=== PATIENT | male | born 1940 | race Caucasian/White ===

== ENCOUNTER → 2025-03-14 06:48 | Outpatient (REF) | payer OTHER, SELFPAY | LOC: RAD 06:48 | PROVIDERS: ATTENDING PHYSICIAN Podiatrist Foot & Ankle Surgery; FAMILY PHYSICIAN Family Medicine | DX: I70.91 Generalized atherosclerosis (principal) | CPT/HCPCS: 93922; 93925 ==

== ENCOUNTER → 2025-07-15 08:50 | Outpatient (REF) | payer OTHER, SELFPAY | LOC: RST 08:50 | PROVIDERS: ATTENDING PHYSICIAN Internal Medicine Critical Care Medicine; FAMILY PHYSICIAN Family Medicine | DX: J84.9 Interstitial pulmonary disease, unspecified (principal) | CPT/HCPCS: 74230; 92611 ==

== ENCOUNTER 2025-09-08 06:32 | Day surgery (SDC) | payer OTHER, SELFPAY ==
[2025-09-08 15:00] VITALS: BMI 28.7
[2025-09-08 15:15] VITALS: BP 126/79
[2025-09-08 15:30] VITALS: BMI 28.7
[2025-09-08 17:18] VITALS: BP 126/79; BP 126/99
[2025-09-08 17:38] VITALS: BP 114/81
[2025-09-08 17:45] VITALS: BP 117/77
[2025-09-08 18:05] VITALS: BP 124/69
[2025-09-08 18:09] LABS: Brochalveolar Lavage Volume 11 ml
[2025-09-08 18:10] LABS: Brochalveolar Lavage Character Clear (Clear); Brochalveolar Lavage Color Colorless; Brochalveolar Lavage WBC 35000 cells/ml
[2025-09-09 08:16] LABS: BAL Lining Cells 19 %
== END 2025-09-08 18:21 | disposition home or self-care (01) ==
LOC: SDS 06:32
PROVIDERS: ATTENDING PHYSICIAN Internal Medicine
DX: J84.10 Pulmonary fibrosis, unspecified (principal); R06.00 Dyspnea, unspecified; J98.8 Other specified respiratory disorders
CPT/HCPCS: 31624; 71045; 87070; 87102; 87116; 87205; 88112; 88305; 89051

== ENCOUNTER → 2025-09-19 11:33 | Outpatient (REF) | payer OTHER, SELFPAY | LOC: DHSLP 11:33 | PROVIDERS: ATTENDING PHYSICIAN Internal Medicine Critical Care Medicine | DX: G47.33 Obstructive sleep apnea (adult) (pediatric) (principal) | CPT/HCPCS: 95800 ==

== ENCOUNTER 2025-10-14 19:13 | Inpatient (IN) | payer OTHER, SELFPAY ==
[2025-10-14] VITALS (8 sets, daily range): BP systolic 104–160; BP diastolic 46–130; BMI 28.5
[2025-10-14 14:12] LABS: Hematocrit 40.0 % (39.0-52.0); Hemoglobin 14.1 g/dL (13.0-18.0); Mean Corp Hgb Conc. 35.3 g/dL (33.0-37.0); Mean Corpuscular Volume 93.7 fL (80.0-94.0); Nucleated Red Blood Cells % 0 % (-); Platelet Count 179 10^3/uL (130-400); Red Cell Dist. Width 11.9 % (11.5-14.5)
[2025-10-14 14:29] LABS: ALT (SGPT) 71 U/L (0-50); AST (SGOT) 100 U/L (17-59); Albumin 3.7 g/dl (3.5-5.0); Alkaline Phosphatase 136 U/L (38-126); Blood Urea Nitrogen 22 mg/dl (9-20); Calcium 9.1 mg/dl (8.4-10.2); Carbon Dioxide 28 mmol/L (22-30); Chloride 96 mmol/L (98-107); Glucose 120 mg/dl (70-99); Potassium 4.2 mmol/L (3.5-5.1); Sodium 129 mmol/L (135-145); Total Protein 6.7 g/dl (6.3-8.2); eGFR > 60.00
[2025-10-14] MEDS: NSS 500 IV (15:26)
[2025-10-14 15:42] LABS: Urine Character Clear (Clear)
[2025-10-14 15:54] LABS: Urine Squamous Cell 0-2 /LPF (Few)
[2025-10-14 15:55] LABS: Urine White Cell >100 /HPF (0-5)
--- NOTE | 2025-10-14 15:59 | ED.GENMED ---
History of Present Illness
General
Chief Complaint: Fall
Source: patient and family
Exam Limitations: none
Time Seen by Provider: 10/14/25 14:38
Nursing documentation reviewed up to this point in time: agreed with
History of Present Illness
History of Present Illness:
Patient presents to ED secondary to 5-day history of 'not feeling well', along with intermittent episodes of involuntary tremor, which has caused patient to fall. Denies headache. Denies head injury from the fall. Denies blurred vision. Denies
loss of sensation or focal weakness. Denies difficulty with speech. In his room, patient reports lack of appetite over the past 4 days. Denies vomiting or diarrhea. Denies abdominal pain. Denies coughing. Denies chest pain or shortness of
breath. Denies recent change in medications or diet. Patient does report chronic shortness of breath from recently diagnosed interstitial pulmonary fibrosis along with congestive heart failure, for which he takes Lasix.
Review of Systems
Review of Systems
Allergies reviewed?: Yes
All Other Systems: ROS reviewed and negative except as documented in HPI and ROS
Constitutional: Reports no symptoms; Denies fever or chills
Respiratory: Reports no symptoms; Denies cough
Cardiac: Reports no symptoms; Denies chest pain, palpitations or syncope
ABD/GI: Reports no symptoms; Denies vomiting or diarrhea
: Reports no symptoms
Musculoskeletal: Reports no symptoms
Skin: Reports no symptoms
Neurological: Reports weakness and other (Involuntary tremor)
Phy Exam
Physical Exam
Physical Exam:
Physical Exam
General: mild distress, not acutely ill. afebrile
Head: nc/at. eomi
Neck: supple. no meningeal signs. normal posterior pharynx
Heart: s1/s2 regular rate and rhythm
Lungs: no acute respiratory distress. diminished breath sounds bilaterally
Abdomen: normal bowel sounds. not tender.
Neuro: alert and oriented x 3. no focal sensory/motor deficit. normal speech. intermittent b/l UE/LE tremor noted
Skin: no rash
Psychiatric: well kept. interactive and cooperative
Extremities: no edema. no calf tenderness.
Course
Orders/Labs/Results
Orders:
Orders
10/14/25 Breakfast
Cholesterol Lowering
Cholesterol Lowering: Sodium, 2 Gram
10/14/25 13:56
Complete Blood Count/With Diff Urgent
Comprehensive Metabolic Panel Urgent
Magnesium Urgent
Comment: ADD ON
TSH Reflex To Free T4 Urgent
Comment: ADD ON
10/14/25 15:11
Add On- LAB Urgent
Tests Added?: TSH to reflex free T4, magnesium, proBNP
CT Head W/o Iv Contrast Urgent
Comment:
Reason For Exam: weakness with involuntary tremor
10/14/25 15:12
0.9% Sodium Chloride 500 ml [Nss] 500 ml IV BOLUS
10/14/25 15:13
CR Obstruct Series W/pa Chest Urgent
Comment:
Reason For Exam: constipation w sob
10/14/25 15:36
Urinalysis Reflex To Culture Urgent
Date Specimen was Collected: 10/14/25
Time Specimen was Collected: 15:35
Urine Microscopic Reflex Cult Urgent
Urine Culture Urgent
CARLOS Source: U
Specimen Description:
Date Specimen was Collected: 10/14/25
Time Specimen was Collected: 15:35
10/14/25 17:49
CefTRIAXone [Rocephin] 1,000 mg IV NOW STA
10/14/25 17:50
diazePAM [Valium Injection] 2 mg IV NOW STA
10/14/25 18:21
Admit/Transfer Patient As Directed
Co-Sign Provider:
Level of Care: Inpatient admission
Assign to:: Medical/Surgical
Physician / Group: mariel,jay
Diagnosis: UTI
Reason for Hospitalization: UTI
Expected length of stay greater than two midnights?: Yes
ELOS- Estimated Length of Stay in days: 3
I certify the patient meets the requirements for IP care: Yes
10/14/25 18:22
Code Status As Directed
Resuscitation Status: Do not resuscitate
Reached after discussion with pt or family/Healthcare POA: Yes
DNR Bracelet Application ONCE
PRN Pain Medication Management As Directed
May give lesser potent ordered pain med per pt: Yes
preference::
Protocol:: Medication orders for pain may be administered in a
manner that supports deferring to patient preference
when the pt is:
- Requesting an ordered lesser potent pain medication.
Least to most potent pain medications are defined
as: acetaminophen < NSAID < tramadol < opioids
(morphine, oxycodone, hydromorphone).
- Requesting a lesser dose of the same medication IF
ORDERED.
- Requesting a less intrusive route of administration
if both routes are prescribed by the provider (PO <
IV).
10/14/25 18:34
Ondansetron Injectable [Zofran] 4 mg .ROUTE .STK-MED ONE
10/14/25 18:35
Ondansetron Injectable [Zofran] 4 mg IV NOW STA
10/14/25 18:39
Acetaminophen [Tylenol] 650 mg PO NOW STA
10/14/25 18:44
Pro-BNP [NT-proBNP] Stat
10/14/25 18:59
Blood Culture Q30M
CARLOS Source: Blood/Venous
Specimen Description:
Blood Culture Q30M
CARLOS Source: Blood/Venous
Specimen Description:
10/14/25 20:02
0.9% Sodium Chloride 1000 ml [Nss] 1,000 ml IV 60 mls/hr
Acetaminophen [Tylenol] 650 mg PO Q4HPRN PRN
Bisacodyl [Dulcolax] 10 mg RECTAL [id number] PRN
Budesonide [Pulmicort] 0.5 mg INH R BID
CefTRIAXone [Rocephin] 1,000 mg IV Q24H
Docusate Sodium [Colace] 100 mg PO BID
Docusate W/Senna [Senokot-S] 1 tablet PO BIDPRN PRN
Polyethylene Glycol Powder [Miralax] 17 grams PO DAILYPRN PRN
Sennosides [Senokot] 8.6 mg PO BID
10/14/25 20:02
Activity As Directed
Activity Level: As Tolerated
Intake/ Output As Directed
Frequency: Per unit guidelines
Vital Signs As Directed
Frequency: Per unit guidelines
Weight As Directed
Frequency: Daily
Ot Eval And Treat Routine
Pt Eval And Treat Routine
Activity Level: As Tolerated
DX Deep Vein Thrombosis Video Routine
10/14/25 22:00
Montelukast Sodium [Singulair] 10 mg PO HS
Pregabalin [Lyrica] 75 mg PO HS
10/15/25 06:00
Complete Blood Count/No Diff IN AM
Comprehensive Metabolic Panel IN AM
10/15/25 08:00
Polyethylene Glycol Powder [Miralax] 17 grams PO DAILY
10/15/25 18:00
Enoxaparin Sodium [Lovenox] 40 mg SC QPM
10/16/25 06:00
Complete Blood Count/No Diff IN AM
Comprehensive Metabolic Panel IN AM
10/17/25 06:00
Complete Blood Count/No Diff IN AM
Comprehensive Metabolic Panel IN AM
10/18/25 06:00
Complete Blood Count/No Diff IN AM
Comprehensive Metabolic Panel IN AM
Abnormal Lab Results
10/14/25 10/14/25
13:56 15:36
WBC 12.9 H 10^3/uL
(4.8-10.8)
RBC 4.27 L 10^6/uL
(4.70-6.10)
MCH 33.0 H pg
(27.0-31.0)
MPV 10.5 H fL
(7.4-10.4)
Abs Immat Gran (auto) 0.1 H 10^3/uL
(0-0.05)
Absolute Neuts (auto) 10.3 H 10^3/uL
(1.4-6.5)
Absolute Lymphs (auto) 1.0 L 10^3/uL
(1.2-3.4)
Absolute Monos (auto) 1.5 H 10^3/uL
(0.1-0.6)
Neutrophils % 79.5 H %
(42.2-75.2)
Lymphocytes % 7.7 L %
(20.5-51.1)
Monocytes % 11.7 H %
(1.7-9.3)
Sodium 129 L mmol/L
(135-145)
Chloride 96 L mmol/L
(98-107)
BUN 22 H mg/dl
(9-20)
Glucose 120 H mg/dl
(70-99)
Total Bilirubin 1.7 H mg/dl
(0.2-1.3)
AST 100 H U/L
(17-59)
ALT 71 H U/L
(0-50)
Alkaline Phosphatase 136 H U/L
(38-126)
Ur Occult Blood Reflex 3+ A
(Negative)
Urine Nitrite (Reflex) Positive A
(Negative)
Leukocyte Esterase Rfl 3+ A
(Negative)
Urine RBC 3-6 A /HPF
(0-2)
Urine WBC (Reflex) >100 A /HPF
(0-5)
Urine Bacteria (Reflex) Many A
(Negative)
Urine Albumin (Reflex) 3+ A
(Neg - Trace)
10/14/25 13:56
10/14/25 13:56
Vital Signs
Initial and Last Documented VS:
Initial Vital Signs
Pulse Resp Pulse Ox
90 15 97
10/14/25 13:58 10/14/25 13:58 10/14/25 13:58
Last Documented Vital Signs
Temp Pulse Resp BP Pulse Ox
100.1 F 91 19 126/55 94
10/14/25 19:46 10/14/25 19:30 10/14/25 19:00 10/14/25 19:00 10/14/25 19:00
MDM/Problems Addressed
MDM/Problems Addressed:
History, exam, and blood work, along with urinalysis, consistent with patient's overall worsening generalized weakness, secondary to dehydration from UTI. Patient will be admitted for further evaluation treatment, including IV hydration and IV
antibiotics. In addition, patient with remittent episodes of intermittent involuntary tremor, which may be multifactorial. Patient will be given Ativan for symptomatic control in the ED. Patient may require neurology consultation as inpatient, if
symptoms persist.
*Pulse Oximetry
SaO2: 95
Patient hypoxic: no
*Critical Care Note
Total Time (30-74mins, 75-104mins- exclusive of procedures): Not Applicable
ED Attending Note
-
Portions of this chart may have been created with voice recognition software.� Occasional wrong word or��sound alike� substitutions may have occurred due to the inherent limitations of voice recognition software.
Discharge Plan
Departure
Patient Disposition: Admit
Date of Disposition: 10/14/25
Time of Disposition: 17:52
Presentation/result/management discussed w/ accepting MD/DO: Hospitalist
Discharge Problem:
Acute UTI, Acute hyponatremia, INVOLUNTARY TREMORS
Interventions
Interventions:
*Risk Screen - Suicide Last Done: 10/14/25 13:29
*General Assessment Last Done: 10/14/25 18:21
*Neglect/Abuse Screening Last Done: 10/14/25 14:38
*ED COVID-19 Vaccine History Last Done: 10/14/25 13:34
*ED Influenza Vaccine History Last Done: 10/14/25 13:34
[facility] Fall Risk Assessment Tool Last Done: 10/14/25 13:28
*Nursing Disposition Last Done: 10/14/25 19:50
ED-Musculoskeletal Assessment Last Done: 10/14/25 14:35
ED- Neurological Assessment Last Done: 10/14/25 14:35
ED-Skin Assessment Last Done: 10/14/25 14:35
Discharge Date and Time
Discharge Date/Time: 10/14/25 19:58
[2025-10-14 16:27] LABS: Magnesium 2.0 mg/dl (1.6-2.3)
[2025-10-14] MEDS: VALIUM INJECTION 2 MG IV (17:59)
[2025-10-14] MEDS: ROCEPHIN 1000 MG IV (17:59)
--- NOTE | 2025-10-14 18:01 | HPS.HSE ---
Family Physician
-
Family Physician: Kyler Baldwin
Chief Complaint
-
shaking chills, urinary burning, constipation
History of Present Illness
85-year-old with past medical history for Restrictive lung disease, interstitial lung disease,, shingles, hyperlipidemia, prostate cancer,HLD, CHF presented to us with generalized weakness, shaking chills, urinary burning, constipation for past 4-5
days. due to the shaking, he had multiple falls. Denies headache. Denies head injury from the fall. Denies blurred vision. Denies loss of sensation or focal weakness. Denies difficulty with speech, patient reports lack of appetite over the past
4 days. Denies vomiting or diarrhea or abdominal pain.denied cough, congestion. he has chronic sob.he was complaining of constipation for which he took miralax and he had small two bowel movements.
Concern for UTI. Patient started on ceftriaxone. Normal saline x 1 bag in the ER. Admitted for further management
Medical History
Past Medical History
Past Medical History: Reports Other
Additional Past Medical History:
CHF, hypertension, hyperlipidemia, interstitial lung disease, prostate cancer
Past Surgical History: Reports Other
Additional Past Surgical History:
Rotator cuff repair, prostatectomy
Social History
Tobacco: Former Smoker
Alcohol: None
Drug: None
Personal: Single
Living: Alone
Family History
Family History: Not pertinent
Allergies / Home Medications
Allergies reflects when Allergies were last updated in [employer].
Home Medications with original date entered in [employer]
Allergy/Medication List:
Allergies
Allergy/AdvReac Type Severity Reaction Status Date / Time
No Known Allergies Allergy Verified 10/14/25 13:29
Home Medications
atorvastatin 20 mg tablet 20 mg PO HS High Cholesterol 09/04/25
budesonide 0.5 mg/2 mL suspension for nebulization 0.5 mg inhalation R BID Lung/Breathing Issues 09/04/25
montelukast 10 mg tablet 10 mg PO HS Allergies 09/04/25
pregabalin 75 mg capsule 75 mg PO HS Anti-Inflammatory 09/04/25
spironolactone 25 mg tablet 25 mg PO DAILY Fluid Retention/Swelling 09/04/25
torsemide 10 mg tablet 10 mg PO DAILY Fluid Retention/Swelling 09/04/25
ascorbic acid (vitamin C) 500 mg tablet (Vitamin C) 500 mg PO DAILY 10/14/25
polyethylene glycol 3350 17 gram oral powder packet (Miralax) 17 g PO DAILYPRN PRN constipation 10/14/25
Review of Systems
-
Constitutional: Reports No Symptoms, Fatigue and Chills
EENT: Reports No Symptoms
Respiratory: Reports Trouble Breathing
Cardiac: Reports No Symptoms
Abdomen/GI: Reports No Symptoms
: Reports Dysuria
Musculoskeletal: Reports No Symptoms
Skin: Reports No Symptoms
Neurological: Reports Weakness
Endocrine: Reports No Symptoms
Hematologic/Lymphatic: Reports No Symptoms
Psych: Reports No Symptoms
Physical Exam
Vital Signs
Vital Signs
Temp Pulse Resp BP Pulse Ox
98.0 F 90 15 160/124 97
10/14/25 14:35 10/14/25 17:45 10/14/25 17:45 10/14/25 17:18 10/14/25 17:45
Physical Exam
General: Well Developed, Well Nourished and No Apparent Distress
HEENT: NormoCephalic, Moist mucous membranes and Atraumatic
Respiratory: Clear
Cardiac: S1/S2 and Regular Rhythm; No Murmur or Rub
GI: Soft, Non Tender, Non Distended and Normal Bowel Sounds; No Organomegaly
Rectal: Deferred by Provider
Musculoskeletal: No Clubbing, No Cyanosis and No Edema
Skin: No Rash
Neuro: AO x 3 and Nonfocal/grossly intact
Psych: Calm
Laboratory Results
-
10/14/25 13:56
10/14/25 13:56
Laboratory Results
Total Bilirubin 1.7 mg/dl (0.2-1.3) H 10/14/25 13:56
AST 100 U/L (17-59) H 10/14/25 13:56
ALT 71 U/L (0-50) H 10/14/25 13:56
Alkaline Phosphatase 136 U/L (38-126) H 10/14/25 13:56
Data Reviewed
-
CT Scan: Report Reviewed by me
Lab Data: Labs Reviewed by me
Impression/Plan
-
# Urinary tract infection
- IV ceftriaxone continue
- Tylenol as needed for fever or pain
- Urine culture pending
- WBCs 12.9
- Chest abdomen x-ray with impression of Increased interstitial markings within the mid to lower lungs, compatible with interstitial fibrosis when comparing to previous exams.No evidence of consolidation to suggest pneumonia. No evidence for
pulmonary edema pattern.No radiographic evidence for bowel obstruction or free intraperitoneal air.
- CT head negative
# Hyponatremia secondary to dehydration
- Fluids continued
- BMP in the morning
- Sodium 129
- Hold torsemide and spironolactone
#constipation
-colace and senna
-miralax added
# History of CHF
- Noted acute exacerbation
- Strict LAWRENCE, daily weight
# Transaminitis
- T. bili 1.7, AST 100, ALT 71, ALK 136
# History for interstitial lung disease
- Singular continued
# Hyperlipidemia
- Hold statin due to transaminitis
# DVT prophylaxis
- Lovenox subcu
# CODE STATUS
- DNR
--- NOTE | 2025-10-14 18:21 | W.PN.UPDATE ---
Update Note
Progress Note Update
This note serves as an addendum to the H&P by construction inspector Jannetba Arnoldo
HPI�
85M
PHX: CHF NOS , HLD, HTN seen at ER
- intermittent episodes of involuntary tremor, which has caused patient to fall.
- Denies head injury from the fall.
- Denies headache.
- Denies blurred vision.
- Denies loss of sensation or focal weakness.
- reports lack of appetite over the past 4 days. Denies vomiting or diarrhea. Denies abdominal pain.
- report chronic shortness of breath from recently diagnosed interstitial pulmonary fibrosis along with congestive heart failure, for which he takes Lasix.
PHX: see above
Relevant VS
Temp Pulse Resp BP Pulse Ox
98.0 F 90 18 123/50 98
10/14/25 14:35 10/14/25 18:15 10/14/25 18:15 10/14/25 18:00 10/14/25 18:15
PE
Gen: NAD
HEENT: symmetric AE
Neck: supple
Lungs: CTA
Cor: RRR S1S2
Abdomen:�soft NT NG
CEMENT KILN OPERATOR: AAO3 NFND
MS: no edema
Psych: interactive and cooperative
Relevant Data
10/14/25
13:56
WBC 12.9 H
Hgb 14.1
Plt Count 179
Sodium 129 L
Chloride 96 L
BUN 22 H
Creatinine 1.1
eGFR > 60.00
Glucose 120 H
Total Bilirubin 1.7 H
AST 100 H
ALT 71 H
Alkaline Phosphatase 136 H
10/14/25
15:36
Urine Nitrite (Reflex) Positive A
Leukocyte Esterase Rfl 3+ A
Urine RBC 3-6 A
Urine WBC (Reflex) >100 A
Urine Bacteria (Reflex) Many A
CR Obstruct Series W/pa Chest for Constipation and shortness of breath
- Increased interstitial markings within the mid to lower lungs, compatible with interstitial fibrosis when comparing to previous exams.
- No evidence of consolidation to suggest pneumonia. No evidence for pulmonary edema pattern.
- No radiographic evidence for bowel obstruction or free intraperitoneal air.
HCT
No acute intracranial abnormality noted.
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
No prior hospitalist admission:
ASSESSMENT & PLAN
Complicated UTI in Male
Associated rigors
- r/o Bacteremia
- UCx
- BCX but sent after IV ABx
- Empiric IV CFTX
- IVF
- Tylenol PRN
Hypovolemic hyponatremia ( Na 129 )
- associated with dehydration from poor PO and UTI
- s/p IV NS 1L at ER - to cont IV NS 1 L more @ 60/H
- Trend Na
- Hold torsemide and spironolactone
Transaminitis likely shock liver from dehydration , UTI
- Trend LFTs
- Hold statin due to transaminitis
HX constipation
- Colace and senna and Miralax
HX CHF
- clinically not in acute HF
HX interstitial lung disease
- WAITER/WAITRESS HEAD Singular continued
Hyperlipidemia
- Hold statin due to transaminitis
DVT Px: LMWH
DNR
IP MS
[2025-10-14] MEDS: ZOFRAN 4 MG IV (18:36)
[2025-10-14] MEDS: TYLENOL 650 MG PO (18:45)
[2025-10-14] MEDS: PULMICORT 0.5 MG INH (21:01)
[2025-10-14] MEDS: LYRICA 75 MG PO (21:25)
[2025-10-14] MEDS: COLACE 100 MG PO (21:25)
[2025-10-14] MEDS: SENOKOT 8.6 MG PO (21:25)
[2025-10-14] MEDS: SINGULAIR 10 MG PO (21:25)
[2025-10-14] MEDS: NSS 1000 IV (21:41)
--- NOTE | 2025-10-15 06:11 | PTCARENOTE ---
Pt c/o rigors. T 98.5. Discussed with PEER EDUCATOR hyperion essbase developer. No new orders placed. No s/s of distress assessed. Will continue to monitor.
[2025-10-15 06:13] VITALS: BMI 28.5
[2025-10-15 07:40] LABS: Hematocrit 37.0 % (39.0-52.0); Hemoglobin 13.2 g/dL (13.0-18.0); Mean Corp Hgb Conc. 35.7 g/dL (33.0-37.0); Mean Corpuscular Volume 94.9 fL (80.0-94.0); Platelet Count 171 10^3/uL (130-400); Red Cell Dist. Width 11.9 % (11.5-14.5)
[2025-10-15 07:45] VITALS: BP 123/92
[2025-10-15 08:06] LABS: ALT (SGPT) 69 U/L (0-50); AST (SGOT) 81 U/L (17-59); Albumin 3.3 g/dl (3.5-5.0); Alkaline Phosphatase 121 U/L (38-126); Blood Urea Nitrogen 20 mg/dl (9-20); Calcium 8.3 mg/dl (8.4-10.2); Carbon Dioxide 27 mmol/L (22-30); Chloride 102 mmol/L (98-107); Estimated Creatinine Clearance 61 ml/min; Glucose 109 mg/dl (70-99); Potassium 4.0 mmol/L (3.5-5.1); Sodium 137 mmol/L (135-145); Total Protein 6.2 g/dl (6.3-8.2); eGFR > 60.00
[2025-10-15] MEDS: PULMICORT 0.5 MG INH ×2 (08:16→20:56)
[2025-10-15] MEDS: SENOKOT 8.6 MG PO ×2 (08:40→19:45)
[2025-10-15] MEDS: MIRALAX 17 GRAMS PO (08:40)
[2025-10-15] MEDS: COLACE 100 MG PO ×2 (08:40→19:45)
--- NOTE | 2025-10-15 09:34 | W.PN.HOSP.TC ---
Today's Communication/Plan
-
see plan
Assessment / Plan
Assessment / Plan
Gen: NAD, AAOx3.
Eyes: EOMI, PERRLA, no scleral icterus.
Neck: supple.
CV: RRR, +S1/S2, no m/r/g.
Resp: CTAB, no rales, wheezes, or rhonchi.
Abd: +BS, soft, NT, ND
Skin: No rashes.
Neuro: CN 2-12 intact, non-focal, mod tremor.
Psych: Normal mood and affect.
CT brain: No acute intracranial abnormality noted. 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
OBST serids: Increased interstitial markings within the mid to lower lungs, compatible with interstitial fibrosis when comparing to previous exams. No evidence of consolidation to suggest pneumonia. No evidence for pulmonary edema pattern. No
radiographic evidence for bowel obstruction or free intraperitoneal air.
Acute UTI:
-cont Rocephin
-s/p IVFs
-trend leukocytosis
-follow BCxs/UCx
Other problems:
Chronic CHF (type unknown): Torsemide/Aldactone on hold based on current BPs with acute infection. Check echo.
Hyponatremia, resolved with IVFs. Torsemide/Aldactone on hold
Constipation: cont bowel regimen
Elevated LFTs due to shock liver, improving
ILD, not in acute exac
HLD: holding statin with transaminitis
Pt's daughter updated at bedside.
DNR/Lovenox
Anticipated Discharge: 24 - 48 hours
Subjective/Interval History
-
Date of Service: October 15, 2025
Denies CP/SOB/abd pain. c/o tremor.
Objective Data
-
Labs:
Laboratory Results
10/15/25
06:50
WBC 12.3 H
Hgb 13.2
Hct 37.0 L
Plt Count 171
Sodium 137 D
Potassium 4.0
Chloride 102
Carbon Dioxide 27
BUN 20
Creatinine 0.9
Glucose 109 H
Calcium 8.3 L
Total Bilirubin 1.3
AST 81 H
ALT 69 H
Alkaline Phosphatase 121
Vital Signs:
Vital Signs
Temp Pulse Resp BP Pulse Ox
100.2 F 75 18 123/92 95
10/15/25 07:45 10/15/25 08:19 10/15/25 08:19 10/15/25 07:45 10/15/25 08:19
I&O
10/14/25 10/15/25 10/16/25
06:59 06:59 06:59
Output Total 850 / 850
Balance -850 / -850
[2025-10-15] MEDS: TYLENOL 650 MG PO ×2 (11:11→22:31)
[2025-10-15 11:25] VITALS: BP 93/41; PULSE 77
[2025-10-15 11:31] VITALS: BP 93/41; PULSE 71; O2SAT 96
--- NOTE | 2025-10-15 11:44 | CM ---
Patient seen bedside with daughter.
IA completed.
Patient independent prior to admission.
patient lives alone 1 story home with ramp to enter.
patient has cane and currently using RW in the hospital.
Patient denies insecurities.
Daughter will arrange transportation home.
IMM completed.
PCP: Dr Baldwin
pharmacy: [facility]
Plan: home, watch for VN needs, PT/OT evals (P)
[2025-10-15 15:30] VITALS: BP 126/54
[2025-10-15] MEDS: LOVENOX 40 MG SC (17:07)
[2025-10-15] MEDS: ROCEPHIN 1000 MG IV (17:07)
[2025-10-15] MEDS: STERILE WATER FOR INJECTION 10 ML IV (17:07)
[2025-10-15] MEDS: SINGULAIR 10 MG PO (19:45)
[2025-10-15] MEDS: LYRICA 75 MG PO (19:45)
[2025-10-15 23:15] VITALS: BP 139/57
[2025-10-16 06:19] VITALS: BMI 28.9
[2025-10-16 06:40] LABS: Hematocrit 36.0 % (39.0-52.0); Hemoglobin 12.6 g/dL (13.0-18.0); Mean Corp Hgb Conc. 35.0 g/dL (33.0-37.0); Mean Corpuscular Volume 95.0 fL (80.0-94.0); Platelet Count 180 10^3/uL (130-400); Red Cell Dist. Width 12.2 % (11.5-14.5)
[2025-10-16 06:58] LABS: ALT (SGPT) 94 U/L (0-50); AST (SGOT) 100 U/L (17-59); Albumin 3.1 g/dl (3.5-5.0); Alkaline Phosphatase 135 U/L (38-126); Blood Urea Nitrogen 21 mg/dl (9-20); Calcium 8.6 mg/dl (8.4-10.2); Carbon Dioxide 27 mmol/L (22-30); Chloride 104 mmol/L (98-107); Estimated Creatinine Clearance 61 ml/min; Glucose 101 mg/dl (70-99); Potassium 4.1 mmol/L (3.5-5.1); Sodium 135 mmol/L (135-145); Total Protein 5.9 g/dl (6.3-8.2); eGFR > 60.00
[2025-10-16] MEDS: PULMICORT 0.5 MG INH ×2 (07:23→19:29)
[2025-10-16 07:54] VITALS: BP 135/54
--- NOTE | 2025-10-16 08:33 | W.PN.HOSP.TC ---
Today's Communication/Plan
-
see plan
Assessment / Plan
Assessment / Plan
Gen: NAD, AAOx3.
Eyes: EOMI, PERRLA, no scleral icterus.
Neck: supple.
CV: remains RRR, +S1/S2, no m/r/g.
Resp: CTAB anteriorly, no rales, wheezes, or rhonchi.
Abd: +BS, soft, NT, ND
Skin: No rashes. No LE edema.
Neuro: CN 2-12 intact, non-focal, mod tremor.
Psych: Normal mood and affect.
10/14/25 15:36 Urine Urine Culture - Final
Klebsiella pneumoniae
10/14/25 18:59 Blood/Venous Blood Culture - Preliminary
No Growth in 24 hours- Final report to follow
10/14/25 18:59 Blood/Venous Blood Culture - Preliminary
No Growth in 24 hours- Final report to follow
Echo:
1. Normal biventricular size and systolic function, with no regional wall motion abnormalities. Estimated LVEF 55%.
2. Paradoxical septal motion consistent with conduction abnormality.
3. Mild aortic regurgitation. Aortic sclerosis without stenosis.
4. Mild/moderate mitral valve regurgitation.
5. No prior study for comparison.
CT brain: No acute intracranial abnormality noted. 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
OBST series: Increased interstitial markings within the mid to lower lungs, compatible with interstitial fibrosis when comparing to previous exams. No evidence of consolidation to suggest pneumonia. No evidence for pulmonary edema pattern. No
radiographic evidence for bowel obstruction or free intraperitoneal air.
Acute UTI:
-UCx with Klebsiella sensitive to cephalosporins, BCxs NGTD
-cont Rocephin
-s/p IVFs
-leukocytosis improving
-trend fever curve
h/o LE edema:
-echo above
-note, chronic HFpEF has been ruled out
-as per discussion with pt's daughter the pt see's special agent [employer] Dr. Goddard who has stated the pt does not have CHF. He was on Torsemide/Aldactone for LE edema. Will not restart diuretics at this time.
Other problems:
Hyponatremia, resolved with IVFs
Constipation: Mg citrate x 1 today
Elevated LFTs due to shock liver, improving
ILD, not in acute exac
HLD: holding statin with transaminitis
Pt's daughter updated at bedside at length.
DNR/Lovenox
Total time spent on today's encounter was 50 minutes which included time spent in counseling the patient/family regarding diagnosis and treatment plan as listed above, goals of care, and symptom management. Case was discussed with nursing staff,
specialists, and care coordinators/case management. All labs and imaging personally reviewed by me. Remainder the time spent in detailed review of previous records, lab data, imaging, and other medical provider documentation.
Anticipated Discharge: 24 - 48 hours
Subjective/Interval History
-
Date of Service: October 16, 2025
Objective Data
-
Labs:
Laboratory Results
10/16/25
05:56
WBC 10.9 H
Hgb 12.6 L
Hct 36.0 L
Plt Count 180
Sodium 135
Potassium 4.1
Chloride 104
Carbon Dioxide 27
BUN 21 H
Creatinine 0.9
Glucose 101 H
Calcium 8.6
Total Bilirubin 0.7
AST 100 H
ALT 94 H
Alkaline Phosphatase 135 H
Vital Signs:
Vital Signs
Temp Pulse Resp BP Pulse Ox
98.2 F 65 12 135/54 99
10/16/25 07:54 10/16/25 07:54 10/16/25 07:54 10/16/25 07:54 10/16/25 07:54
I&O
10/15/25 10/16/25 10/17/25
06:59 06:59 06:59
Intake Total 1380 / 1380
Output Total 850 / 850 1225 / 1225
Balance -850 / -850 155 / 155
[2025-10-16] MEDS: SENOKOT 8.6 MG PO (09:22)
[2025-10-16] MEDS: MIRALAX 17 GRAMS PO (09:22)
[2025-10-16] MEDS: COLACE 100 MG PO (09:24)
--- NOTE | 2025-10-16 11:55 | CM ---
CM met with patient and his daughter at bedside. Discussed PT/OT recommendations for SNF. Provided patient with list of are facilities. Patient and daughter requesting referrals to [facility]. [facility], and [facility] in
[place]. Referrals were placed in [facility].
Plan: SNF, will need insurance auth
[2025-10-16] MEDS: CITROMA 300 ML PO (11:57)
[2025-10-16 12:57] VITALS: BP 136/63
[2025-10-16 15:30] VITALS: BP 155/76
[2025-10-16] MEDS: STERILE WATER FOR INJECTION 10 ML IV (17:33)
[2025-10-16] MEDS: ROCEPHIN 1000 MG IV (17:42)
[2025-10-16] MEDS: LOVENOX 40 MG SC (17:43)
[2025-10-16] MEDS: SENOKOT PO (20:01)
[2025-10-16] MEDS: LYRICA 75 MG PO (20:01)
[2025-10-16] MEDS: SINGULAIR 10 MG PO (20:01)
[2025-10-16] MEDS: COLACE PO (20:01)
[2025-10-16 22:56] VITALS: BP 143/70
[2025-10-17 05:15] VITALS: BMI 28.3
[2025-10-17 07:00] VITALS: BP 139/57
[2025-10-17 08:03] LABS: Hematocrit 36.5 % (39.0-52.0); Hemoglobin 12.8 g/dL (13.0-18.0); Mean Corp Hgb Conc. 35.1 g/dL (33.0-37.0); Mean Corpuscular Volume 96.3 fL (80.0-94.0); Platelet Count 210 10^3/uL (130-400); Red Cell Dist. Width 12.0 % (11.5-14.5)
[2025-10-17] MEDS: MIRALAX PO (08:09)
[2025-10-17] MEDS: COLACE PO (08:09)
[2025-10-17] MEDS: SENOKOT PO (08:09)
[2025-10-17] MEDS: PULMICORT 0.5 MG INH (08:11)
[2025-10-17 08:26] LABS: ALT (SGPT) 106 U/L (0-50); AST (SGOT) 99 U/L (17-59); Albumin 3.1 g/dl (3.5-5.0); Alkaline Phosphatase 135 U/L (38-126); Blood Urea Nitrogen 19 mg/dl (9-20); Calcium 8.5 mg/dl (8.4-10.2); Carbon Dioxide 26 mmol/L (22-30); Chloride 105 mmol/L (98-107); Estimated Creatinine Clearance 78 ml/min; Glucose 90 mg/dl (70-99); Potassium 4.2 mmol/L (3.5-5.1); Sodium 137 mmol/L (135-145); Total Protein 6.0 g/dl (6.3-8.2); eGFR > 60.00
--- NOTE | 2025-10-17 08:56 | W.PN.HOSP.TC ---
Addendum entered and electronically signed by Simon Franco MD 10/17/25 11:16:
Total time spent on d/c = 34 min. This included today's physical exam, progress note, review of laboratory and diagnostic data, preparation of discharge documents and prescriptions, and discussions about the pt's hospital course and discharge plan
with the patient and other chief medical technologist involved in the patient's care.
Original Note:
Today's Communication/Plan
-
see plan
Assessment / Plan
Assessment / Plan
Gen: NAD, AAOx3.
Eyes: EOMI, PERRLA, no scleral icterus.
Neck: supple.
CV: continues to remain RRR, +S1/S2, no m/r/g.
Resp: remains CTAB anteriorly, no rales, wheezes, or rhonchi.
Abd: remains +BS, soft, NT, ND
Skin: No rashes. No LE edema.
Neuro: CN 2-12 intact, non-focal, mod tremor.
Psych: Normal mood and affect.
10/14/25 18:59 Blood/Venous Blood Culture - Preliminary
No Growth in 48 hours- Final report to follow
10/14/25 18:59 Blood/Venous Blood Culture - Preliminary
No Growth in 48 hours- Final report to follow
10/14/25 15:36 Urine Urine Culture - Final
Klebsiella pneumoniae
Echo:
1. Normal biventricular size and systolic function, with no regional wall motion abnormalities. Estimated LVEF 55%.
2. Paradoxical septal motion consistent with conduction abnormality.
3. Mild aortic regurgitation. Aortic sclerosis without stenosis.
4. Mild/moderate mitral valve regurgitation.
5. No prior study for comparison.
CT brain: No acute intracranial abnormality noted. 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
OBST series: Increased interstitial markings within the mid to lower lungs, compatible with interstitial fibrosis when comparing to previous exams. No evidence of consolidation to suggest pneumonia. No evidence for pulmonary edema pattern. No
radiographic evidence for bowel obstruction or free intraperitoneal air.
Acute UTI:
-UCx with Klebsiella sensitive to cephalosporins, BCxs NGTD
-cont Rocephin until d/c
-s/p IVFs
-leukocytosis resolved
-fever now resolved
h/o LE edema:
-echo above
-note, chronic HFpEF has been ruled out
-as per discussion with pt's daughter the pt see's planer off bearer Dr. Goddard who has stated the pt does not have CHF. He was on Torsemide/Aldactone for LE edema. Will not restart diuretics at this time.
Other problems:
Hyponatremia, resolved with IVFs
Constipation: Mg citrate x 1 today
Elevated LFTs due to shock liver, improving
ILD, not in acute exac
HLD: holding statin with transaminitis
Pt's daughter updated at bedside.
DNR/Lovenox
Medically cleared for d/c, case management aware.
Anticipated Discharge: Today
Subjective/Interval History
-
Date of Service: October 17, 2025
No new complaints.
Objective Data
-
Labs:
Laboratory Results
10/17/25
06:15
WBC 9.9
Hgb 12.8 L
Hct 36.5 L
Plt Count 210
Sodium 137
Potassium 4.2
Chloride 105
Carbon Dioxide 26
BUN 19
Creatinine 0.7
Glucose 90
Calcium 8.5
Total Bilirubin 0.7
AST 99 H
ALT 106 H
Alkaline Phosphatase 135 H
Vital Signs:
Vital Signs
Temp Pulse Resp BP Pulse Ox
98 F 60 16 139/57 93
10/17/25 07:00 10/17/25 08:13 10/17/25 08:13 10/17/25 07:00 10/17/25 08:13
I&O
10/16/25 10/17/25 10/18/25
06:59 06:59 06:59
Intake Total 1380 / 1380 930 / 930
Output Total 1225 / 1225 1250 / 1250 475 / 475
Balance 155 / 155 -320 / -320 -475 / -475
[2025-10-17 11:06] VITALS: BP 133/57; PULSE 76; O2SAT 94
--- NOTE | 2025-10-17 11:33 | W.DCSUMMARY ---
Discharge Summary
Discharge Data
Date of Admission: 10/14/25
Date of Discharge: 10/17/25
-
Pending Results: No
Hospital Course
Primary diagnoses:
Acute urinary tract infection
Secondary diagnoses:
Hyponatremia
Constipation
Elevated liver function tests likely due to shock liver
Interstitial lung disease
Hyperlipidemia
h/o bilateral lower extremity edema
Consultants:
None
Imaging:
Echo:
1. Normal biventricular size and systolic function, with no regional wall motion abnormalities. Estimated LVEF 55%.
2. Paradoxical septal motion consistent with conduction abnormality.
3. Mild aortic regurgitation. Aortic sclerosis without stenosis.
4. Mild/moderate mitral valve regurgitation.
5. No prior study for comparison.
CT brain: No acute intracranial abnormality noted. 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
OBST series: Increased interstitial markings within the mid to lower lungs, compatible with interstitial fibrosis when comparing to previous exams. No evidence of consolidation to suggest pneumonia. No evidence for pulmonary edema pattern. No
radiographic evidence for bowel obstruction or free intraperitoneal air.
85-year-old male who presented with chief complaints of rigors, dysuria, and constipation as outlined in the H&P done on admission. Hospital course per problem list:
Acute UTI: The patient's diuretics were held and he was given IV fluids. He was placed on Rocephin. UCx grew Klebsiella sensitive to cephalosporins, blood cultures were no growth to date. His leukocytosis resolved. His fever resolved. He was
discharged on 1 further week of Keflex.
h/o LE edema: Echocardiogram above. As per discussion with pt's daughter the pt see's onion topper Dr. Goddard who has stated the pt does not have CHF. He was on Torsemide/Aldactone for LE edema. Will not restart diuretics at this time.
Discharge Plan
-
Patient Disposition: [facility]pc/SNF
Discharge Diagnosis/Procedures: Acute urinary tract infection
Condition: Good
Diet: Low Cholesterol
Activity: As tolerated
Driving Restrictions: Not until seen by your Dr
Activity Restrictions/Additional Instructions:
Start keflex
Referrals:
Kyler Baldwin MD [Family Provider, [facility]] - in less than 1 week
Prescriptions:
New
cephalexin 500 mg capsule
500 mg PO Q6H 7 Days Qty: 28 0RF
Continued
atorvastatin 20 mg Tablet
20 mg PO HS
montelukast 10 mg Tablet
10 mg PO HS
pregabalin 75 mg Capsule
75 mg PO HS
budesonide 0.5 mg/2 mL Suspension For Nebulization
0.5 mg INHALATION R BID
polyethylene glycol 3350 [Miralax] 17 gram Powder In Packet
17 g PO DAILYPRN PRN (Reason: constipation)
ascorbic acid (vitamin C) [Vitamin C] 500 mg Tablet
500 mg PO DAILY
Discontinued
torsemide 10 mg Tablet
10 mg PO DAILY
spironolactone 25 mg Tablet
25 mg PO DAILY
Discharge Orders:
Discharge Patient (As Directed); Ordered 10/17/25
Ordered By: Simon Franco
Discharge Date and Time
Print Language: HUNGARIAN
--- NOTE | 2025-10-17 11:45 | CM ---
Addendum entered by Rayna Weir 10/17/25 11:56:
Patient is being transferred to [facility] at 130pm via [facility]. Patient and his daughter are aware of scheduled cook pickled meat.
Original Note:
Met with patient and daughter at beside. Patient is stable for SNF transfer today. Patient accepted at [facility] and [facility]. Patient/daughter prefer [facility]. IMM given.
CM contacted [facility] for SNF and ambulation auth:
SNF auth# [id number] (approved 5 days 10/17- 10/21)
ambulance auth#[id number] (Acute care)
[facility]
#for Nursing Report- [phone]
fax#[phone]
Plan: [facility] SNF today, [facility] to tranport
[2025-10-17] MEDS: STERILE WATER FOR INJECTION 10 ML IV (12:19)
[2025-10-17] MEDS: ROCEPHIN 1000 MG IV (12:20)
[2025-10-17 12:55] LABS: COVID-19 Antigen Negative (Negative)
== END 2025-10-17 15:06 | DRG 689 ==
LOC: 4 WEST ACU 19:13
PROVIDERS: Emergency Medicine; Registered Nurse; ADMITTING PHYSICIAN Internal Medicine; ATTENDING PHYSICIAN Internal Medicine; EMERGENCY PHYSICIAN Emergency Medicine; FAMILY PHYSICIAN Family Medicine
DX: N39.0 Urinary tract infection, site not specified (principal); K72.00 Acute and subacute hepatic failure without coma; E87.1 Hypo-osmolality and hyponatremia; J84.178 Other interstitial pulmonary diseases with fibrosis in diseases classified elsewhere; I50.9 Heart failure, unspecified; B96.1 Klebsiella pneumoniae [K. pneumoniae] as the cause of diseases classified elsewhere; R25.1 Tremor, unspecified; K59.00 Constipation, unspecified; E78.5 Hyperlipidemia, unspecified; E86.0 Dehydration; E86.1 Hypovolemia; I11.0 Hypertensive heart disease with heart failure; Z66 Do not resuscitate; Z11.52 Encounter for screening for COVID-19; Z79.899 Other long term (current) drug therapy; Z87.891 Personal history of nicotine dependence
CPT/HCPCS: 70450; 74022; 80053; 81003; 81015; 83735; 83880; 84443; 85025; 85027; 87040; 87077; 87086; 87186; 87811; 93306; 94640; 96361; 96374; 96375; 97163; 97167; 97530; 97535; 99285